=== PATIENT | female | born 1965 | race Two or more races ===

== ENCOUNTER 2018-06-12 10:33 | Outpatient (CLI) | payer OTHER | END 2018-06-12 12:00 | disposition home or self-care (01) | LOC: LAB 10:33 | DX: D12.8 Benign neoplasm of rectum (principal); K92.1 Melena; Z86.010 Personal history of colon polyps; E11.9 Type 2 diabetes mellitus without complications; Z01.810 Encounter for preprocedural cardiovascular examination ==

== ENCOUNTER 2018-06-17 09:15 | Inpatient (IN) | payer OTHER ==
[2018-06-17] MEDS ORDERED: GLUCOVANCE PO (09:58)
[2018-06-26] MEDS ORDERED: GLYBURIDE-METF1 EACH PO (16:34)
== END 2018-06-27 11:53 | disposition home or self-care (01) | DRG 334 ==
LOC: EDSTATUS 09:15 → ADM 09:15 → EDBD 09:15 → SURH 06-26 09:15 → O/R 06-26 09:57 → SURH 06-26 14:45
PROVIDERS: ADMIT Colon & Rectal Surgery
PROC: 0DBP0ZZ Excision of Rectum, Open Approach (ICD-10-PCS; principal; 2018-06-26 14:45)
DX: D12.8 Benign neoplasm of rectum (principal)

== ENCOUNTER 2019-09-05 10:00 | Day surgery (SDC) | payer OTHER | END 2019-09-05 17:00 | disposition home or self-care (01) | LOC: AMB-ENDOS 10:00 | PROVIDERS: ATTEND Colon & Rectal Surgery | DX: K62.89 Other specified diseases of anus and rectum (principal); K64.1 Second degree hemorrhoids ==